=== PATIENT | female | born 1995 | race Caucasian/White ===

== ENCOUNTER 2017-01-03 13:07 | Outpatient (CLI) | payer SELFPAY ==
[~2017-01-03] VITALS: Ht 157.5 cm; Wt 78.3 kg
[~2017-01-03 13:07] MED LIST: ACET1TAB40 PO; ACET325T33 PO; CEPH500C PO; ONDA-43 PO; SENN-53 PO
[2017-01-03 13:46] VITALS: BP 114/58; RESP 16; Ht 157.5 cm; Wt 78.3 kg
--- NOTE | 2017-01-03 14:15 | RADRPT ---
PROCEDURE: Limited obstetric ultrasound CLINICAL INDICATION: Pain , labor TECHNIQUE: Multiple transverse and longitudinal grayscale images of the pelvis were obtained mcpherson sabdominally and transvaginally.. COMPARISON: same day FINDINGS: The cervix has a length of 5.4 cm. There is a trace amount of fluid within the cervix. There is a single viable intrauterine gestation. Cardiac activity is present with 137 beats per min adonis. There is a vertex presentation. The placenta is anterior. There is no evidence for an abruption or placenta previa. RPTAT: AA IMPRESSION: The cervix has a length of 5.4 cm. There is a trace amount of fluid within the cervix. .Keshav Judd MD, Date Time Electronically viewed and signed by .Keshav Judd MD, on 01/03/2017 14:15 .S/
[2017-01-03 14:23] LABS: ADD SCAN DIFF NO
[2017-01-03 14:25] LABS: BASOPHIL # 0.1 10^3/ul (0.0-0.1); BASOPHILS % 0.6 % (0.0-2.0); EOSINOPHILS # 0.1 10^3/ul (0.0-0.5); EOSINOPHILS % 1.2 % (0.0-7.0); HEMATOCRIT 28.8 % (37.0-47.0); HEMOGLOBIN 8.5 g/dl (12.0-16.0); LYMPHOCYTES # 1.9 10^3/ul (0.8-2.9); MEAN CORPUSCULAR HGB CONC 29.5 g/dl (32.0-37.0); MEAN CORPUSCULAR VOLUME 67.9 fl (72.0-104.0); MEAN PLATELET VOLUME 10.5 fl (7.4-10.4); MONOCYTE # 0.5 10^3/ul (0.3-0.9); MONOCYTES % 6.5 % (0.0-13.0); NEUTROPHIL # 5.5 10^3/ul (1.6-7.5); NEUTROPHILS % 68.2 % (30.0-74.0); PLATELET COUNT 319 10^3/UL (140-415); RED BLOOD COUNT 4.24 10^6/ul (4.20-5.40); RED CELL DISTRIBUTION WIDTH 18.7 % (11.5-14.5)
[2017-01-03 14:30] LABS: ADD UMIC YES; URINE BILIRUBIN (Dip) NEGATIVE (NEGATIVE); URINE BLOOD (Dip) NEGATIVE (NEGATIVE); URINE COLOR LT. YELLOW (YELLOW); URINE GLUCOSE (Dip) NEGATIVE (NEGATIVE); URINE KETONES (Dip) NEGATIVE (NEGATIVE); URINE LEUKOCYTE ESTERASE (Dip) 1+ (NEGATIVE); URINE NITRITE (Dip) NEGATIVE (NEGATIVE); URINE TOTAL PROTEIN (Dip) NEGATIVE (NEGATIVE); URINE UROBILINOGEN (Dip) 0.2 E.U./dL (0.1-1.0)
[2017-01-03 14:36] LABS: ALBUMIN 3.4 g/dl (3.3-4.9)
[2017-01-03 14:37] LABS: INR 0.98; POTASSIUM 3.7 mmol/L (3.5-5.1)
[2017-01-03 14:38] LABS: PARTIAL THROMBOPLASTIN TIME 27.2 Sec (25.0-35.0)
[2017-01-03 14:39] LABS: ALBUMIN/GLOBULIN RATIO 1.17; BILIRUBIN,INDIRECT 0.1 mg/dl (0-1.1); BILIRUBIN,TOTAL 0.1 mg/dl (0.2-1.3); CREATININE 0.45 mg/dl (0.44-1.00); TOTAL PROTEIN 6.3 g/dl (6.1-8.1)
[2017-01-03 14:40] LABS: CALCIUM 8.8 mg/dl (8.4-10.2); URIC ACID 3.5 mg/dl (3.1-7.9)
[2017-01-03 14:52] LABS: URINE RBCS 0-2 /HPF (0)
[2017-01-03 14:53] LABS: BACTERIA,URINE FEW
--- NOTE | 2017-01-03 15:16 | QN ---
Documentation Comment 21 y/o female at 32 weeks sent in C/O U/C claims she is diabetic and had PIH with all previous pregnancies All labs and U/S is normal baby is reactive will follow as out patient weekly THALIA PIMENTEL MD Jan 03, 2017 15:16
--- NOTE | 2017-01-03 15:34 | TRIAGE ---
OB Triage Datetime Report Generated by CPN: 01/03/2017 15:34 Datetime: 01/03/2017 15:12 Labor Evaluation Frequency: x2 Duration (sec)2399: 50-60 Pattern: Normal: <= 5 Contractions in 10 Minutes Resting Tone [place]: Relaxed Heart Rate FHR Baseline Rate: 135 Monitor Mode: External US Variability: Moderate 6-25 bpm Accelerations: 15X15 Decelerations: None Category: Category I Pain Assessment Pain Scale: 0 Pain Presence: None/Denies Pain Type: N/A Pain Goal: 3 Datetime: 01/03/2017 14:31 Time of Arrival: 01/03/2017 13:05 EGA: 32.3 Arrived By: Ambulatory Arrived From: Office Chief Complaint: pt. came to hospital from md office for r/o ptl and pih lab work, deny headache, deny vision disturbance, deny epigastric pain Movement: Present Contractions: Denies/Absent Rupture of Membranes: Denies Vaginal Bleeding: None Vaginal Discharge: Denies Recent Sexual Intercouse: Denies Abdominal Trauma: Not Applicable Patient Complaints: None Initial Plan: r/o ptl, pih labs Datetime: 01/03/2017 13:58 Monitor Mode: External Pattern: Normal: <= 5 Contractions in 10 Minutes Resting Tone [place]: Relaxed Contraction Comments: irritability Heart Rate FHR Baseline Rate: 135 Monitor Mode: External US Variability: Moderate 6-25 bpm Accelerations: 15X15 Decelerations: None Category: Category I Datetime: 01/03/2017 13:48 Assessment Type: Triage Maternal Assessment Level of Consciousness: Fully Conscious DTR's/Clonus: DTRs 2+; No Clonus Headache: Denies Blurred Vision: No Respiratory Effort: Unlabored; Regular Rhythm; Equal Expansion Breath Sounds, Left: Clear and Equal Breath Sounds, Right: Clear and Equal Nausea/Vomiting: Denies RUQ Epigastric Pain: Denies Facial Edema: None Fall Risk Assessment History of Falling: (0) No Secondary Diagnosis: (0) No Ambulatory Aid: (0) Bedrest/Nurse Assist IV Therapy: (0) No Gait: (0) Normal/Bedrest/Immobile Mental Status: (0) Oriented to Own Ability Fall Score: 0 Fall Risk Score Definition: No Risk: No action required
== END 2017-01-03 15:30 | disposition home or self-care (01) ==
LOC: OBT 13:07 → L-D 13:08 → OBT 15:30
PROVIDERS: ATTEND Obstetrics & Gynecology
DX: O62.9 Abnormality of forces of labor, unspecified (principal); O13.3 Gestational [pregnancy-induced] hypertension without significant proteinuria, third trimester; Z3A.32 32 weeks gestation of pregnancy
CPT/HCPCS: 76817; 80053; 81001; 84560; 85025; 85384; 85610; 85730; G0463; 81003

== ENCOUNTER 2017-01-18 19:55 | Inpatient (IN) | payer MEDICAID ==
[~2017-01-18] VITALS: Ht 157.5 cm; Wt 83.5 kg
[~2017-01-18 19:55] MED LIST changes: -CEPH500C PO
[2017-01-18 20:26] VITALS: Ht 157.5 cm; Wt 83.5 kg
[2017-01-18] MEDS ORDERED: CALC600T5 PO (20:26)
[2017-01-18] MEDS ORDERED: FOLI0.8C PO (20:26)
[2017-01-18] MEDS ORDERED: FERR325C PO (20:26)
[2017-01-18] MEDS ORDERED: PREN1TAB79 PO (20:26)
[2017-01-18 20:27] VITALS: BP 108/56
[2017-01-18] MEDS ORDERED: LACTATED RINGER'S 1,000 ML IV ONE (22:00)
--- NOTE | 2017-01-18 22:46 | RADRPT ---
PROCEDURE: US biophysical profile. CLINICAL INDICATION: PTL. well-being. TECHNIQUE: Multiple sonographic images of the uterus were obtained. The images were revi ewed on a PACS workstation. COMPARISON: 01/03/2017. 08/17/2016. FINDINGS: There is a single live intrauterine gestation. heart rate is 125 beats per minute. The position is cephalic. The placenta is anterior, grade II. The TAVO is 15.2 cm. Breathing Movement: 2 Gross Body Movement: 2 Tone: 2 Qualitative Amniotic Fluid Volume: 2 TOTAL: 8 IMPRESSION: 1. Single viable intrauterine gestation. 2. Biophysical profile = 05/22. 3. TAVO = 15.2 cm. RPTAT: HFN .Carolyn Mccurdy MD, MD Date Time Electronically viewed and signed by .Carolyn Mccurdy MD, MD on 01/18/2017 22:45 .N/
[2017-01-18 23:24] LABS: ADD UMIC YES; URINE BILIRUBIN (Dip) NEGATIVE (NEGATIVE); URINE BLOOD (Dip) NEGATIVE (NEGATIVE); URINE COLOR LT. YELLOW (YELLOW); URINE GLUCOSE (Dip) NEGATIVE (NEGATIVE); URINE KETONES (Dip) NEGATIVE (NEGATIVE); URINE LEUKOCYTE ESTERASE (Dip) 1+ (NEGATIVE); URINE NITRITE (Dip) NEGATIVE (NEGATIVE); URINE TOTAL PROTEIN (Dip) NEGATIVE (NEGATIVE); URINE UROBILINOGEN (Dip) 0.2 E.U./dL (0.1-1.0)
[2017-01-18 23:46] LABS: BACTERIA,URINE RARE; SQUAMOUS EPITHELIAL CELL,UR FEW; URINE RBCS 0-2 /HPF (0)
[2017-01-18] MEDS: LACTATED RINGER'S 1,000 ML IV* SCH (23:46)
--- NOTE | 2017-01-19 00:36 | PN ---
Date/Time of Note Date/Time of Note DATE: 01/19/17 TIME: 00:32 OB Subjective Subjective Subjective 21 yo P3 @ 34.3 wks w ctx prior c/d x 3 no VB, no LOF, good FM OB Objective Objective Objective 108/56, 94, 20,98.1 Abdomen- gravid, n/t SVE- l/c/p FHT- Cat I [place] ctx q 5 min HEENT: WNL Abdomen: WNL Accelerations: Accelerations Present Decelerations: No Decelerations Varibility: Moderate Contractions on Admission: 6-10 Minutes Apart Intensity: Moderate OB Assessment/Plan Other Assessment: h/o prior c/d x 3; ctx reassuring status Other plan: will IV hydrate terb x 1 reassess to see if ctx stop BEN QUINTEROS MD Jan 19, 2017 00:36
[2017-01-19] MEDS ORDERED: TERBUTALINE 1 ML ONE (00:45)
[2017-01-19] MEDS ORDERED: morphine 4 MG/ML VIAL IV ONE (00:57)
[2017-01-19] MEDS ORDERED: TERBUTALINE 1 MG/ML INJ SC ONE (01:00)
[2017-01-19] MEDS ORDERED: LACTATED RINGER'S 1,000 ML IV SCH (01:59)
[2017-01-19] MEDS ORDERED: ONDANSETRON 4 MG INJ IV PRN ×3 (02:00→18:30)
[2017-01-19] MEDS ORDERED: BUTORPHANOL 2 MG INJ IV ONE ×2 (02:00→07:00)
[2017-01-19] MEDS ORDERED: CALCIUM CARBONATE 1.25 GM TAB PO ONE (02:00)
--- NOTE | 2017-01-19 05:45 | TRIAGE ---
OB Triage Datetime Report Generated by CPN: 01/19/2017 05:45 Datetime: 01/19/2017 05:09 Vaginal Exam Dilatation (cms): 0.0 Effacement (%): 50 Station: -3 Exam By: MARCELA HO RN Datetime: 01/19/2017 04:00 Labor Evaluation Frequency: NONE SEEN Monitor Mode: External Resting Tone [place]: Relaxed Heart Rate FHR Baseline Rate: 135 Monitor Mode: External US FHR Baseline Changes: No Baseline Change Variability: Moderate 6-25 bpm Accelerations: 15X15 Decelerations: None Category: Category I Datetime: 01/19/2017 03:00 Labor Evaluation Frequency: X1 Monitor Mode: External Duration (sec)2399: 50 Quality: Mild Resting Tone [place]: Relaxed Contraction Comments: UTERINE IRRITABILITY PRESENT Heart Rate FHR Baseline Rate: 150 Monitor Mode: External US FHR Baseline Changes: No Baseline Change Variability: Moderate 6-25 bpm Accelerations: 15X15 Decelerations: None Category: Category I Datetime: 01/19/2017 02:24 Assessment Type: Admission Assessment Vaginal Bleeding: None Maternal Assessment Level of Consciousness: Fully Conscious DTR's/Clonus: DTRs 2+; No Clonus Headache: Denies Blurred Vision: No Respiratory Effort: Unlabored; Regular Rhythm; Equal Expansion Breath Sounds, Left: Clear and Equal Breath Sounds, Right: Clear and Equal Nausea/Vomiting: Present Lower Extremities Edema: None Degree: None Upper Extremities Edema: None Degree: None Facial Edema: None Fall Risk Assessment History of Falling: (25) Yes Secondary Diagnosis: (15) Yes Ambulatory Aid: (0) Bedrest/Nurse Assist IV Therapy: (20) Yes Gait: (0) Normal/Bedrest/Immobile Mental Status: (0) Oriented to Own Ability Fall Score: 60 Fall Risk Score Definition: High Risk: Please see High Risk fall prevention interventions Labor Evaluation Frequency: OCCASSIONAL Duration (sec)2399: 50 Quality: Mild Resting Tone [place]: Relaxed Heart Rate FHR Baseline Rate: 150 Variability: Moderate 6-25 bpm Accelerations: 15X15 Decelerations: None Category: Category I Pain Assessment Pain Scale: 8 Pain Presence: Intermittent Pain Type: Cramping; Contraction Pain Location: Abdomen Pain Goal: 5 Vaginal Exam Dilatation (cms): 0.0 Effacement (%): 0 Station: -3 Membrane Status: Intact Datetime: 01/19/2017 02:00 Stage of : OB Triage Labor Evaluation Frequency: Irregular Monitor Mode: External Duration (sec)2399: 40-80 Quality: Mild Pattern: Normal: <= 5 Contractions in 10 Minutes Resting Tone [place]: Relaxed Heart Rate FHR Baseline Rate: 150 Monitor Mode: External US Variability: Moderate 6-25 bpm Accelerations: 15X15 Decelerations: Variable Category: Category II Datetime: 01/19/2017 01:23 Stage of : OB Triage Datetime: 01/19/2017 01:08 Stage of : OB Triage Temperature Route: Oral Datetime: 01/19/2017 01:00 Stage of : OB Triage Labor Evaluation Frequency: Irregular Monitor Mode: External Duration (sec)2399: 40-80 Quality: Mild Pattern: Normal: <= 5 Contractions in 10 Minutes Resting Tone [place]: Relaxed Heart Rate FHR Baseline Rate: 135 Monitor Mode: External US Variability: Moderate 6-25 bpm Accelerations: 15X15 Decelerations: None Category: Category I Datetime: 01/19/2017 00:53 Stage of : OB Triage Vaginal Exam Dilatation (cms): 0.0 Exam By: Dr.Espitia Datetime: 01/19/2017 00:49 Stage of : OB Triage Pain Assessment Pain Scale: 10 Pain Presence: Intermittent Pain Type: Cramping Pain Location: Abdomen; Back Pain Relief Measures: Comfort Measures Pain Assessment Comments: Will medicate Datetime: 01/19/2017 00:00 Stage of : OB Triage Labor Evaluation Frequency: Irregular Monitor Mode: External Duration (sec)2399: 40-80 Quality: Mild Pattern: Normal: <= 5 Contractions in 10 Minutes Resting Tone [place]: Relaxed Heart Rate FHR Baseline Rate: 125 Monitor Mode: External US FHR Baseline Changes: No Baseline Change Variability: Moderate 6-25 bpm Accelerations: 15X15 Decelerations: None Category: Category I Datetime: 01/18/2017 23:00 Stage of : OB Triage Labor Evaluation Frequency: Irregular Monitor Mode: External Duration (sec)2399: 40-60 Quality: Mild Pattern: Normal: <= 5 Contractions in 10 Minutes Resting Tone [place]: Relaxed Heart Rate FHR Baseline Rate: 125 Monitor Mode: External US FHR Baseline Changes: No Baseline Change Variability: Moderate 6-25 bpm Accelerations: 15X15 Decelerations: None Category: Category I Datetime: 01/18/2017 22:37 Vaginal Exam Dilatation (cms): 0.0 Effacement (%): 0 Station: -4 Exam By: KEHINDE Leroy Membrane Status: Intact Vaginal Bleeding: None Cervix, Consistency: Firm Cervix, Position: Posterior Datetime: 01/18/2017 22:00 Stage of : OB Triage Labor Evaluation Frequency: Irregular Monitor Mode: External Duration (sec)2399: 40-60 Quality: Mild Pattern: Normal: <= 5 Contractions in 10 Minutes Resting Tone [place]: Relaxed Heart Rate FHR Baseline Rate: 125 Monitor Mode: External US Variability: Moderate 6-25 bpm Accelerations: 15X15 Decelerations: None Category: Category I Datetime: 01/18/2017 21:21 Stage of : OB Triage Datetime: 01/18/2017 21:00 Stage of : OB Triage Labor Evaluation Frequency: x1 with irritability Monitor Mode: External Duration (sec)2399: 20-80 Quality: Mild Pattern: Normal: <= 5 Contractions in 10 Minutes Resting Tone [place]: Relaxed Heart Rate FHR Baseline Rate: 130 Monitor Mode: External US Variability: Moderate 6-25 bpm Accelerations: 15X15 Decelerations: Variable Category: Category II Datetime: 01/18/2017 20:40 Monitor Mode: External Contraction Comments: Gonzalez changed Datetime: 01/18/2017 20:38 Bedside Blood Glucose: 89 Datetime: 01/18/2017 20:21 Stage of : OB Triage Datetime: 01/18/2017 20:16 Stage of : OB Triage Assessment Type: Triage Maternal Assessment Level of Consciousness: Fully Conscious DTR's/Clonus: DTRs 2+; No Clonus Headache: Temporal; Bilateral; Frontal Blurred Vision: No Respiratory Effort: Unlabored; Regular Rhythm; Equal Expansion Breath Sounds, Left: Clear and Equal Breath Sounds, Right: Clear and Equal Nausea/Vomiting: Present (Annotations: Nausea only) RUQ Epigastric Pain: Denies Lower Extremities Edema: None Degree: None Upper Extremities Edema: None Degree: None Facial Edema: None Temperature Route: Oral Fall Risk Assessment History of Falling: (0) No Secondary Diagnosis: (0) No Ambulatory Aid: (0) Bedrest/Nurse Assist IV Therapy: (0) No Gait: (0) Normal/Bedrest/Immobile Mental Status: (0) Oriented to Own Ability Fall Score: 0 Fall Risk Score Definition: No Risk: No action required Pain Assessment Pain Scale: 6 Pain Presence: Intermittent Pain Type: Cramping Pain Location: Abdomen; Back Pain Relief Measures: Comfort Measures Datetime: 01/18/2017 20:14 Stage of : OB Triage Monitor Mode: External Contraction Comments: Gonzalez applied Heart Rate FHR Baseline Rate: 130 Monitor Mode: External US Comments: EFM applied Datetime: 01/18/2017 20:12 Time of Arrival: 01/18/2017 19:51 EGA: 34.3 Arrived By: Wheelchair Arrived From: Dr. Office Chief Complaint: Abd pain x 4days Movement: Present Contractions: Regular Contractions: q5mins Rupture of Membranes: Denies Vaginal Bleeding: None Vaginal Discharge: Denies Recent Sexual Intercouse: Denies Abdominal Trauma: Not Applicable Patient Complaints: Contractions; Cramping; Back Pain Time Provider Notified: 01/18/2017 21:21 Provider Notified: Initial Plan: EFM x2 Datetime: 01/03/2017 14:31 EGA: 32.2 Datetime: 01/03/2017 13:48 Fall Score: 0 Fall Risk Score Definition: No Risk: No action required
[2017-01-19] MEDS: LACTATED RINGER'S 1,000 ML IV* SCH (06:14)
[2017-01-19] MEDS ORDERED: MAGNESIUM SULFATE 4 GM/100 ML 100 ML ONE (07:24)
[2017-01-19] MEDS ORDERED: MAGNESIUM SULFATE 4 GM/100 ML 100 ML IV SCH (07:30)
[2017-01-19] MEDS ORDERED: MAGNESIUM SULFATE 20 GM/500 ML 500 ML IV SCH (08:00)
[2017-01-19 08:14] LABS: BENZODIAZEPINES Negative (NEGATIVE)
[2017-01-19 08:16] LABS: BARBITURATES Negative (NEGATIVE); CANNABINOIDS Negative (NEGATIVE); COCAINE Negative (NEGATIVE)
[2017-01-19 08:17] LABS: OPIATES Negative (NEGATIVE)
[2017-01-19] MEDS ORDERED: BETAMET NA PHOS/AC(6 MG/ML) 5ML INJ IM SCH ×2 (08:30→20:12)
[2017-01-19] MEDS ORDERED: FERROUS SULFATE (EC) 325 MG TAB PO SCH (09:00)
[2017-01-19] MEDS ORDERED: FOLIC ACID 0.4 MG TAB PO SCH (09:00)
[2017-01-19] MEDS ORDERED: MULTIVIT/MIN/FOLATE/IRON/PREN TAB PO SCH (09:00)
[2017-01-19 09:02] LABS: ADD SCAN DIFF NO
[2017-01-19 09:07] LABS: ABNORMAL IP MESSAGE 1; BASOPHILS % 0.2 % (0.0-2.0); EOSINOPHILS # 0.1 10^3/ul (0.0-0.5); EOSINOPHILS % 1.2 % (0.0-7.0); HEMATOCRIT 26.1 % (37.0-47.0); HEMOGLOBIN 7.4 g/dl (12.0-16.0); LYMPHOCYTES # 1.7 10^3/ul (0.8-2.9); LYMPHOCYTES % 16.4 % (18.0-55.0); MEAN CORPUSCULAR HEMOGLOBIN 19.2 pg (29.0-33.0); MEAN CORPUSCULAR HGB CONC 28.4 g/dl (32.0-37.0); MEAN CORPUSCULAR VOLUME 67.8 fl (72.0-104.0); MEAN PLATELET VOLUME 10.4 fl (7.4-10.4); MONOCYTE # 0.7 10^3/ul (0.3-0.9); MONOCYTES % 6.3 % (0.0-13.0); NEUTROPHIL # 7.7 10^3/ul (1.6-7.5); NEUTROPHILS % 75.1 % (30.0-74.0); PLATELET COUNT 278 10^3/UL (140-415); RED BLOOD COUNT 3.85 10^6/ul (4.20-5.40); WHITE BLOOD COUNT 10.3 10^3/ul (4.8-10.8)
[2017-01-19 09:20] LABS: INR 1.03; PROTIME 13.5 Sec (12.2-14.2); PT RATIO 1.1
[2017-01-19 09:21] LABS: PARTIAL THROMBOPLASTIN TIME 25.9 Sec (25.0-35.0)
--- NOTE | 2017-01-19 09:53 | RADRPT ---
PROCEDURE: Limited OB ultrasound CLINICAL INDICATION: Pelvic pain TECHNIQUE: Sonographic evaluation to assess the placenta was performed. Transabdominal imaging of the gravid uterus was performed. COMPARISON: No prior exam is available for comparison. FINDINGS: There is a single live intrauterine with cardiac activity, with a heart rate o f 148 bpm. position is cephalic. The placenta is anterior. There is no evidence of placenta l abruption or previa. IMPRESSION: Anterior placenta without evidence of placental abruption or previa. RPTAT: HH .Cha Garcia MD, MD Date Time Electronically viewed and signed by .Cha Garcia MD, MD on 01/19/2017 09:53 .G/
[2017-01-19] MEDS ORDERED: CEFAZOLIN 2 GM/50 ML (PMX) 50 ML IVPB ONE (11:30)
[2017-01-19] MEDS: MEPERIDINE 50 MG INJ IV PRN ×2 (12:12→16:15)
--- NOTE | 2017-01-19 13:31 | QN ---
Documentation Comment Neonatology consult Asked to see this by Dr. Craven This mother is a 21-year-old 4 para 2 who presented at 34 and 3/ sevenths weeks gestation [facility] with labor, gestational diabetes with poor control and a history of a previous . Mother is presently on magnesium sulfate tocolysis and is started a course of steroids. She is intact and no history of fevers I spoke to the parents in [place] regarding the risks associated with delivery including but not limited to the following 1. Respiratory distress syndrome apnea prematurity use of oxygen and ventilatory support 2. Patent ductus arteriosus and hypertension in their clinical management and NICU 3. Possibility of infection including the use of antibiotics and workup. Also stressed early rupture membranes could cause increased risk for infection 4. Internal gestational diabetes: We will be following blood sugars on the baby and may require IV glucose supplementation 5. Nutrition difficulties including poor on nutritive effort possibility of intervention with occupational physical therapy and IV nutrition to the penis. 6. There is a very minimal risk of intraventricular hemorrhage in this age group with severe grade 3 grade 4 risk being probably less than 1 to 4%. I answered the parent's questions and will be available to attend the delivery as necessary. If you have any further questions please do not hesitate to contact us PILI BEAVERS MD Jan 19, 2017 13:31
--- NOTE | 2017-01-19 13:59 | PDOCDIS ---
NICU Discharge Instructions Project Account Manager Information Follow-up with Physician: 3 Day/Days Diet NICU Formula: Other Comment gentle ease formula at 20 iva/oz Additional Instructions Additional Information May discharge if hospital hold lifted Discharge to care of maternal grandmother as arranged by [facility] Discharge medication 0.66mg po every 12 hours for 1 week then 0.54mg po q 12 hours feedings eveery 2-4 hours with gentle ease formula or breast milk ad peyman volume Followup with tax clerk in 3 days 01/22/17 Followup [facility] clinic in 8 months PILI BEAVERS MD Jan 19, 2017 13:59
[2017-01-19] MEDS ORDERED: DEXTROSE 50% 50 ML SYRINGE IV PRN ×2 (14:00)
[2017-01-19] MEDS ORDERED: GLUCAGON 1 MG INJ IM PRN (14:00)
[2017-01-19] MEDS ORDERED: GLUCOSE GEL 15 GRAM TUBE BUCCAL PRN (14:00)
[2017-01-19] MEDS ORDERED: GLUCOSE GEL 15 GRAM TUBE PO PRN ×2 (14:00)
[2017-01-19] MEDS ORDERED: CITRIC ACID/NA CITRATE 30 ML CUP ONE (16:49)
[2017-01-19] MEDS ORDERED: OXYTOCIN 30 UNITS/LR 500 ML IV ONE ×2 (16:57→18:11)
[2017-01-19] MEDS ORDERED: morphine SULFATE/PF (10 MG/10 ML) INJ ONE (16:58)
[2017-01-19] MEDS ORDERED: METOCLOPRAMIDE 10 MG INJ ONE (16:58)
[2017-01-19] MEDS ORDERED: KETOROLAC 30 MG INJ ONE (16:58)
[2017-01-19] MEDS ORDERED: ACCU-CHEK XX SCH ×2 (17:05→19:35)
[2017-01-19] MEDS ORDERED: PHENYLephrine (100 MCG/ML) 5ML SYG ONE (17:11)
[2017-01-19] MEDS ORDERED: CARBOPROST 250 MCG INJ ONE (17:34)
[2017-01-19] MEDS ORDERED: NALOXONE (0.4 MG/ML) INJ IV PRN (18:30)
[2017-01-19] MEDS ORDERED: METOCLOPRAMIDE 10 MG INJ IV PRN (18:30)
[2017-01-19] MEDS ORDERED: OXYTOCIN 30 UNITS/LR 500 ML IV SCH (18:30)
[2017-01-19] MEDS ORDERED: HYDROmorphONE 1 MG/ML SYG IV PRN ×2 (18:30)
[2017-01-19] MEDS ORDERED: DIPHENHYDRAMINE 50 MG INJ IV PRN (18:30)
[2017-01-19] MEDS ORDERED: HYDROmorphONE (0.2 MG/ML) 10ML SYG IV PRN ×3 (18:30)
--- NOTE | 2017-01-19 18:37 | HP ---
Date/Time of Note Date/Time of Note DATE: 01/19/17 TIME: 18:10 OB - History Hx of Present Free Text/Dictation 21 y/o female at 34.4 weeks C/O onset of labor pains started at 0200 AM 2016. Patient had history of previous C/S X 3 Patient was seen on 01/18/2017 in clinic was directed to refer to hospital however she did not do so. According to patient upon arrival had minimal contraction pains. However the pain became more and more intense until she was started on magnesium sulfate. Regardless she continued to C/O pain and incisional pain which could not be relieved. After discussion of situation with patient agreed to continue to be observed until the second dose of steroids in AM. As mentioned before pain became more and more intense to point of patient crying of pain regardless of the fact that electronic monitor was not showing persistent contractions. Finally after consulting perinatologist Dr. Lindsey decision was made to repeat C/S with the fact that she received on dose of steroid understanding the fact that persistent C/O incisional pain by patient could be dangerous to herself and unborn child. Patient was reconsulted and agreed to have repeat C/S Estimated Due Date: February 26, 2017 : 4 Para: 3 Care: Limited Care Ultrasounds: Other (late trimester U/S ) Obstetrical Complications: Gestational Diabetes (Questionable class A DM ) Medical Complications: Other (previous appendectomy? ) Past Family/Social History * Past Medical, Surgical, Family and Obstetric Histories reviewed from chart. Blood Type: O+ Rubella: unknown RPR/VDRL: Negative GBS Status: Unknown HBsAG: Negative OB Admission Exam Vital Signs Vital Signs Vital Signs Date Time Temp Pulse Resp B/P Pulse Ox O2 Delivery O2 Flow Rate FiO2 01/18/17 20:27 98.1 94 20 108/56 Room Air Physical Exam HEENT: WNL Heart: Rhythm Normal Lungs: Clear, Equal Abdomen: WNL Extremities: Normal Reflexes: Normal Cervical Dilatation: Fingertip Effacement: 0% Station: -3 Membranes: Intact (patient had claim that she had SROM : ROM plus stayed negative X 2 ) Heart Rate: 120's Accelerations: Accelerations Present Decelerations: No Decelerations Varibility: Moderate Contractions on Admission: < 5 Minutes Apart Date/Time Contractions Began: 01/19/2017 0400 AM Frequency of Contractions: q3 Duration: >45 seconds Intensity: Firm Last 72 hourBlood Glucose Bedside Glucose - 72 Hours Test 01/18/17 20:38 01/19/17 13:27 Bedside Glucose 89mg/dL (70-220) 101mg/dL (70-220) Last 72 hours Lab Results CBC & BMP 01/19/17 08:25 OB Assessment/Plan Reason for admission: labor Other Assessment: 34+ weeks gestation previous C/S X 3 persistent nonresolving uterine contractions possible early ruptured uterus Other plan: repeat C/S per perinatologist THALIA PIMENTEL MD Jan 19, 2017 18:27
--- NOTE | 2017-01-19 18:39 | OPR ---
Operative Report Planned Procedure Procedure date Jan 19, 2017 Procedure(s) repeat C/S Performed by: THALIA PIMENTEL MD Assisting provider: BRIDGET LI MD Anesthesiologist: HARI MARQUEZ MD Pre-procedure diagnosis persistent nonresolving premature uterine contractions at 34 + weeks previous C/S X 3 Anesthesia Type: spinal Procedure Description Under satisfactory anaesthesia a Pfannenstiel incision was made two fingerbreadth above and parallel to the symphysis of pubis around the previous scar and previous scar was removed Incision was extended laterally to the border of the Recti muscles on either sides. Incision was carried down with sharp and blunt dissection until fascia was reached. Anterior Recti muscle fascia was incised in mid portion and incision extended laterally to the border of skin incision. Fascia was mobilized from muscle superiorly and Recti muscles were from midline using sharp and blunt dissection. Peritoneum was visualized; Avoiding bowel and bladder it was incised . Incision was extended superiorly and inferiorly. Bladder blade was placed. Posterior peritoneum covering the lower segment of the uterus and lower segment of the uterus were incised.Low transverse uterine incision was made on lower segment of the uterus. Incision extended laterally to the border of Round Lig. on either sides and baby was delivered from OT. position . Amniotic fluid appeared clear. Cord blood was obtained and cord had 3 vessels . Placenta was delivered spontaneously and appeared intact and complete. Intrauterine cavity was rubbed with a laparotomy sponge. Uterine incision was closed in 2 layers using running stitches of No1 Monocryl. Hemostasis appeared secure. Ovaries and Fallopian tubes were within normal limits. Announcing needle, lap sponge and instrument count to be correct abdomen was closed in layers as follows: Peritoneum and Recti muscles with running stitches of 20 Vicryl. Fascia with running stitch of No 1 PDS. Subcutaneous tissue with running stitches of 20 Chromic and skin was closed using jeri. Patient tolerated the procedure well and was transferred to [facility] in good condition. Post-Procedure Post-procedure diagnosis S/P C/S Findings: Live Baby [ Specimen removed: No Complications: None Pt Condition post procedure: stable Disposition: PACU Physician Certification I, the undersigned physician, hereby certify that I have discussed the procedure described in this consent form with this patient (or the patient's legal sales representative wire rope), including: * The risk and benefits of the procedure; * Any adverse reactions that may reasonably be expected to occur; * Any alternative efficacious methods of treatment which may be medically viable ; * The potential problems that may occur during recuperation; * Potential for blood transfusion and associated risks/benefits; and * Any research or economic interest I may have regarding this treatment. I further certify that the patient/legally responsible person was encouraged to ask question and that all questions were answered. THALIA PIMENTEL MD Jan 19, 2017 18:39
[2017-01-19] MEDS ORDERED: CARBOPROST 250 MCG INJ IM PRN ×2 (19:00→21:00)
[2017-01-19] MEDS ORDERED: CITRIC ACID/NA CITRATE 30 ML CUP PO ONE (19:00)
[2017-01-19] MEDS ORDERED: MISOPROSTOL 200 MCG TAB PR PRN ×2 (19:00→21:00)
[2017-01-19] MEDS ORDERED: METHYLERGONOVINE 0.2 MG INJ IM PRN ×2 (19:00→21:00)
[2017-01-19] MEDS ORDERED: OXYTOCIN 30 UNITS/LR 500 ML IV PRN ×2 (19:00→21:00)
[2017-01-19] MEDS ORDERED: INSULIN ASPART [NOVOLOG] 3 ML PEN SC SCH (19:35)
[2017-01-19] MEDS: HYDROmorphONE 1 MG/ML SYG IV PRN (19:44)
[2017-01-19] MEDS: KETOROLAC 30 MG INJ IV PRN (19:44)
[2017-01-19] MEDS ORDERED: CEFAZOLIN 2 GM/50 ML (PMX) 50 ML IV SCH (21:00)
[2017-01-19] MEDS ORDERED: LANOLIN 7 GM TUBE TOP PRN (21:00)
[2017-01-19] MEDS: SENNA/DOCUSATE NA (8.6MG/50MG) TAB PO SCH (21:00)
[2017-01-19] MEDS ORDERED: NA PHOSPHATE/BIPHOS 133 ML ENEMA PR PRN (21:00)
[2017-01-19] MEDS ORDERED: ACETAMINOPHEN/CODEINE #3 TAB PO PRN (21:00)
[2017-01-19 21:20] VITALS: BP 108/59; PULSE 82; RESP 19
[2017-01-19] MEDS: LACTATED RINGER'S 1,000 ML IV SCH (21:46)
[2017-01-19 22:10] VITALS: BP 101/54; PULSE 78; RESP 19
[2017-01-20 01:00] VITALS: BP 94/49; PULSE 78; RESP 20
[2017-01-20] MEDS: CEFAZOLIN 2 GM/50 ML (PMX) 50 ML IVPB SCH ×3 (01:16→16:29)
[2017-01-20] MEDS: KETOROLAC 30 MG INJ IV PRN ×2 (01:16→10:21)
[2017-01-20] MEDS: LACTATED RINGER'S 1,000 ML IV SCH ×4 (05:22→23:41)
[2017-01-20] MEDS: HYDROmorphONE 1 MG/ML SYG IV PRN ×3 (05:26→15:16)
[2017-01-20] MEDS: CLINDAMYCIN 300 MG CAP PO SCH ×4 (05:26→23:40)
[2017-01-20 05:41] VITALS: BP 90/45; PULSE 91; RESP 19
--- NOTE | 2017-01-20 07:12 | PN ---
Date/Time of Note Date/Time of Note DATE: 01/20/17 TIME: 07:10 Assessment/Plan VTE Prophylaxis VTE Prophylaxis Intervention: ambulation Lines/Catheters IV Catheter Type (from Nrsg): Saline Lock Subjective 24 Hr Interval Summary Free Text/Dictation Anesthesia Note: A 21 y female s/p C-S with duramorph for post op pain, POD #1 is doinf fine. pain is controlled, no itching, headache, n/v. back is clean. care per surgery team Exam/Review of Systems Vital Signs Vitals Vital Signs Date Time Temp Pulse Resp B/P Pulse Ox O2 Delivery O2 Flow Rate FiO2 01/20/17 05:41 98.7 91 19 90/45 Room Air Intake and Output 01/19/17 01/19/17 01/20/17 15:00 23:00 07:00 Intake Total 200 ml 2500 ml 1050 ml Output Total 1400 ml 2900 ml 600 ml Balance -1200 ml -400 ml 450 ml Results Result Diagram: 01/19/17 0825 Results 24 hrs Laboratory Tests Test 01/19/17 08:25 01/19/17 13:27 01/19/17 15:15 White Blood Count 10.3 # Red Blood Count 3.85 L Hemoglobin 7.4 L Hematocrit 26.1 L Mean Corpuscular Volume 67.8 L Mean Corpuscular Hemoglobin 19.2 L Mean Corpuscular Hemoglobin Concent 28.4 L Red Cell Distribution Width 19.0 H Platelet Count 278 Mean Platelet Volume 10.4 Neutrophils % 75.1 H Lymphocytes % 16.4 L Monocytes % 6.3 Eosinophils % 1.2 Basophils % 0.2 Nucleated Red Blood Cells % 0.0 Neutrophils # 7.7 H Lymphocytes # 1.7 Monocytes # 0.7 Eosinophils # 0.1 Basophils # 0.0 Nucleated Red Blood Cells # 0.0 Prothrombin Time 13.5 Prothrombin Time Ratio 1.1 INR International Normalized Ratio 1.03 Activated Partial Thromboplast Time 25.9 Rapid Plasma Reagin NONREACTIVE Hepatitis B Surface Antigen NEGATIVE Bedside Glucose 101 Membranes Rupture NEGATIVE Medications Medications Current Medications Naloxone HCl (Narcan) 0.1 mg Q2M PRN IV FOR RESP RATE 8 OR LESS; Start 01/19/17 at 18:30; Stop 01/20/17 at 18:29 Ketorolac Tromethamine (Toradol) 30 mg Q6H PRN IV PAIN Last administered on 01/20 01:16; Admin Dose 30 MG; Start 01/19/17 at 18:30; Stop 01/20/17 at 18:29 Hydromorphone HCl (Dilaudid) 1 mg Q3H PRN IV BREAKTHROUGH PAIN Last administered on 01/20/17 05:26; Admin Dose 1 MG; Start 01/19/17 at 18:30; Stop at 18:29 Hydromorphone HCl (Dilaudid) 0.2 mg Q3H PRN IV PAIN LEVEL 1-5; Start 01/19/17 at 18:30; Stop 01/20/17 at 18:29 Hydromorphone HCl (Dilaudid) 0.4 mg Q3H PRN IV PAIN LEVEL 6-10 Last administered on 01/19/17 21:40; Admin Dose 0.4 MG; Start 01/19/17 at 18:30; Stop 01/20/17 at 18:29 Diphenhydramine HCl (Benadryl) 25 mg Q6H PRN IV ITCHING Last administered on 21:46; Admin Dose 25 MG; Start 01/19/17 at 18:30; Stop 01/20/17 at 18:29 Ondansetron HCl 4 mg 4 mg Q6H PRN IV NAUSEA AND/OR VOMITING; Start 01/19/17 at 18:30; Stop 01/20/17 at 18:29 Oxytocin/Lactated Ringer's 500 ml @ 0 mls/hr ONCE PRN IV For Hemorrhage Management; Start 01/19/17 at 19:00 Carboprost Tromethamine 250 mcg 250 mcg ONCE PRN IM VAGINAL BLEEDING; Start 01/19 at 19:00 Lactated Ringer's (Lr) 1,000 ml @ 125 mls/hr Q8H IV Last administered on 05:22; Admin Dose 125 MLS/HR; Start 01/19/17 at 20:43 Ibuprofen (Motrin) 800 mg Q8 PO ; Start 01/19/17 at 22:00; Status Future hold Simethicone (Mylicon) 160 mg Q8H PRN PO DISTENSION/GAS/BLOATING; Start 01/19/17 at 21:00 Senna/Docusate Sodium (Senokot-S) 1 tab BID PO ; Start 01/19/17 at 21:00 Sodium Biphosphate/ Sodium Phosphate (Fleet Enema) 133 ml DAILY PRN DE CONSTIPATION; Start 01/19/17 at 21:00 Diphtheria/ Tetanus/Acell Pertussis (Adacel) 0.5 ml ONCE ONCE IM* ; Start at 09:00; Stop 01/22/17 at 09:01 Measles/Mumps/ Rubella Vaccine Live 0.5 ml 0.5 ml ONCE ONCE SC* ; Start at 09:00; Stop 01/22/17 at 09:01 Oxytocin/Lactated Ringer's 500 ml @ 0 mls/hr ONCE PRN IV For Hemorrhage Management; Start 01/19/17 at 21:00 Methylergonovine Maleate (Methergine) 0.2 mg ONCE PRN IM VAGINAL BLEEDING; Start 01/19/17 at 21:00 Carboprost Tromethamine (Hemabate) 250 mcg ONCE PRN IM VAGINAL BLEEDING; Start 01/19/17 at 21:00 Misoprostol (Cytotec) 1,000 mcg ONCE PRN DE VAGINAL BLEEDING; Start 01/19/17 at 21:00 Acetaminophen/ Codeine Phosphate (Tylenol No.3) 2 tab Q4H PRN PO PAIN LEVEL 1-5 ; Start 01/19/17 at 21:00 Oxycodone/ Acetaminophen (Percocet (5/ 325)) 2 tab Q4H PRN PO PAIN LEVEL 6-10; Start 01/19/17 at 21:00 Clindamycin HCl (Cleocin) 300 mg Q6 PO Last administered on 01/20/17 05:26; Admin Dose 300 MG; Start 01/20/17 at 06:00 Bisacodyl (Dulcolax Supp) 10 mg ONCE ONCE DE ; Start 01/20/17 at 09:00; Stop 01/20/17 at 09:01 Diagnostic Test (Pha) 1 ea 1 ea FBSPP XX ; Start 01/20/17 at 06:00 Cefazolin Sodium/ Dextrose (Ancef 2 Gm/50 ml (Pmx)) 50 ml @ 100 mls/hr Q8H IVPB Last administered on 01/20/17 01:16; Admin Dose 100 MLS/HR; Start 01/20/17 at 01:00; Stop 01/20/17 at 17:29 HARI MARQUEZ MD Jan 20, 2017 07:11
[2017-01-20] MEDS: ACCU-CHEK XX SCH ×4 (07:30→20:05)
[2017-01-20 07:36] LABS: ADD SCAN DIFF NO
[2017-01-20 07:38] LABS: ABNORMAL IP MESSAGE 1; BASOPHILS % 0.2 % (0.0-2.0); EOSINOPHILS % 0.1 % (0.0-7.0); HEMATOCRIT 24.6 % (37.0-47.0); HEMOGLOBIN 7.1 g/dl (12.0-16.0); LYMPHOCYTES # 1.7 10^3/ul (0.8-2.9); LYMPHOCYTES % 14.1 % (18.0-55.0); MEAN CORPUSCULAR HEMOGLOBIN 19.7 pg (29.0-33.0); MEAN CORPUSCULAR HGB CONC 28.9 g/dl (32.0-37.0); MEAN CORPUSCULAR VOLUME 68.1 fl (72.0-104.0); MEAN PLATELET VOLUME 10.4 fl (7.4-10.4); MONOCYTE # 0.7 10^3/ul (0.3-0.9); MONOCYTES % 5.6 % (0.0-13.0); NEUTROPHIL # 9.6 10^3/ul (1.6-7.5); NEUTROPHILS % 79.5 % (30.0-74.0); PLATELET COUNT 287 10^3/UL (140-415); RED BLOOD COUNT 3.61 10^6/ul (4.20-5.40); RED CELL DISTRIBUTION WIDTH 18.6 % (11.5-14.5); WHITE BLOOD COUNT 12.1 10^3/ul (4.8-10.8)
[2017-01-20 08:30] VITALS: BP 94/50; PULSE 86; RESP 18
[2017-01-20] MEDS: SENNA/DOCUSATE NA (8.6MG/50MG) TAB PO SCH ×2 (08:34→22:16)
[2017-01-20] MEDS ORDERED: BISACODYL 10 MG SUPP PR ONE (09:00)
[2017-01-20 12:52] VITALS: BP 98/53; PULSE 71; RESP 18
--- NOTE | 2017-01-20 16:21 | PN ---
Date/Time of Note Date/Time of Note DATE: 01/20/17 TIME: 16:19 Assessment/Plan VTE Prophylaxis VTE Prophylaxis Intervention: ambulation Lines/Catheters IV Catheter Type (from Nrs): Saline Lock Assessment/Plan Assessment/Plan POD # 1 S/P C/S will advance diet ambulate Subjective 24 Hr Interval Summary No BM passing flatus Constitutional: BM, ambulates, flatus, improved, no complaints, urine output Pain Control: well controlled Exam/Review of Systems Vital Signs Vitals Vital Signs Date Time Temp Pulse Resp B/P Pulse Ox O2 Delivery O2 Flow Rate FiO2 01/20/17 12:52 98.0 71 18 98/53 Room Air Intake and Output 01/19/17 01/19/17 01/20/17 15:00 23:00 07:00 Intake Total 200 ml 2500 ml 1050 ml Output Total 1400 ml 2900 ml 600 ml Balance -1200 ml -400 ml 450 ml Exam Free Text/Dictation abdomen: soft BS + Incision covered Constitutional: alert, oriented, well developed Psych: nl mood/affect, no complaints Head: atraumatic, normocephalic Eyes: EOMI, nl conjunctiva, nl lids, nl sclera ENMT: mucosa pink and moist, nl external ears & nose, nl lips & teeth, nl nasal mucosa & septum Neck: non-tender, supple Respiratory: clear to auscultation, normal air movement Cardiovascular: nl pulses, regular rate and rhythm Gastrointestinal: nl liver, spleen, non-tender, soft Musculoskeletal: nl extremities to inspection, nl gait and stance Extremities: normal pulses Neurological: ROADABILITY MACHINE OPERATOR II-XII intact, nl mental status, nl speech, nl strength Skin: nl turgor, rash or lesions Lymph: nl lymph nodes Results Result Diagram: 01/20/17 0651 THALIA PIMENTEL MD Jan 20, 2017 16:21
[2017-01-20 16:22] VITALS: BP 99/53; PULSE 72; RESP 18
[2017-01-20] MEDS: OXYCODONE/ACETAMINOPHEN (5/325) TAB PO PRN (18:58)
[2017-01-20 19:35] VITALS: BP 110/58; PULSE 83; RESP 19
[2017-01-20] MEDS: IBUPROFEN 800 MG TAB PO SCH (22:16)
[2017-01-21] MEDS: OXYCODONE/ACETAMINOPHEN (5/325) TAB PO PRN ×3 (02:08→17:17)
[2017-01-21 03:50] VITALS: BP 106/53; PULSE 83; RESP 18
[2017-01-21] MEDS: CLINDAMYCIN 300 MG CAP PO SCH ×3 (05:33→17:17)
[2017-01-21] MEDS: IBUPROFEN 800 MG TAB PO SCH ×3 (05:33→22:03)
[2017-01-21 07:30] VITALS: BP 101/53; PULSE 76; RESP 19
[2017-01-21] MEDS: ACCU-CHEK XX SCH ×4 (07:30→20:05)
[2017-01-21] MEDS: SENNA/DOCUSATE NA (8.6MG/50MG) TAB PO SCH ×2 (08:23→22:03)
[2017-01-21] MEDS: LACTATED RINGER'S 1,000 ML IV SCH ×2 (11:23→20:43)
[2017-01-21 16:00] VITALS: BP 103/56; PULSE 72; RESP 19
--- NOTE | 2017-01-21 16:39 | DS ---
Date/Time of Note Date/Time of Note home next day DATE: 01/21/17 TIME: 16:37 Obstetrical Discharge Record Final Diagnosis Final Diagnosis: delivered Other Final Diagnosis persistent nonresolving contractions Section Section: Repeat Complications Gestational Diabetes (questionable ) Tocolytics: Magnesium Sulfate Condition on Discharge Physical Assessment Last Vitals: see nurses notes Voiding: Yes Bowel Movement: Yes Breast: Soft, non-tender, Filling Fundus: Firm Abdomen and Incision: abdomen: soft BS + Incision: healing well Episiotomy: NA Calf Tenderness: No Patient Condition: Good THALIA PIMENTEL MD Jan 21, 2017 16:39
--- NOTE | 2017-01-21 16:43 | DS ---
Date/Time of Note Date/Time of Note home next day DATE: 01/21/17 TIME: 16:40 Discharge Summary Admission/Discharge Info Admit Date/Time Jan 19, 2017 at 02:20 Discharge Date/Time 01/22/2017 Final Diagnosis S/P repeat C/S Patient Condition: Good Consults perinatology Procedures repeat C/S Hx of Present Illness 21 y/o female underwent 4th C/S with nonresolving uterine contractions Hospital Course uncomplicated Home Meds Active Scripts Acetaminophen* (Tylenol*) 325 Mg Tablet, 1 TAB PO Q6 Y for PAIN AND OR ELEVATED TEMP, #20 TAB Prov:Karla Nguyen PA-C 08/18/16 Ondansetron Hcl* (Zofran*) 4 Mg Tab, 4 MG PO Q4H Y for NAUSEA AND OR VOMITING, # 30 TAB Prov:JOSE LOPEZ 12/28/15 Sennosides* (Senna Lax*) 8.6 Mg Tablet, 1 TAB PO Q12H Y for CONSTIPATION, #30 TAB Prov:JOSE LOPEZ 12/28/15 Acetaminophen-Codeine* (Acetaminophen-Cod #3*) 300-30 Mg Tab, 1 TAB PO Q4H Y for PAIN, #30 TAB Prov:JOSE LOPEZ 12/28/15 Reported Medications Folic Acid (Folic Acid) 0.8 Mg Capsule, 0.8 MG PO DAILY, CAP 01/18/17 Calcium Carbonate (CALCIUM) 600 Mg Tablet, 600 MG PO DAILY, TAB 01/18/17 Ferrous Sulfate (Iron) 325 Mg Capsule.er, 325 MG PO DAILY, CAP 01/18/17 Vit W-Ca,Fe,FA(<1 mg) ( Vitamins) 1 Each Tablet, 1 EACH PO DAILY, TAB 01/18/17 Follow-up Plan 2 days in clinic for staple removal Pending Labs Laboratory Tests Test 01/20/17 23:02 01/21/17 07:57 01/21/17 11:11 01/21/17 15:08 Bedside Glucose 136mg/dL (70-220) 84mg/dL (70-220) 86mg/dL (70-220) 121mg/dL (70-220) THALIA PIMENTEL MD Jan 21, 2017 16:43
--- NOTE | 2017-01-21 16:45 | PD.PPDC ---
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
[2017-01-21] MEDS ORDERED: Oxycodone/Acetamin (5/325) PO (16:47)
[2017-01-21] MEDS ORDERED: IBUP800T25 PO (16:47)
[2017-01-21 19:40] VITALS: BP 105/54; PULSE 87; RESP 19
[2017-01-22] MEDS: CLINDAMYCIN 300 MG CAP PO SCH ×3 (00:23→12:31)
[2017-01-22] MEDS: LACTATED RINGER'S 1,000 ML IV SCH ×2 (02:07→12:43)
[2017-01-22 03:30] VITALS: BP 106/50; PULSE 77; RESP 18
[2017-01-22] MEDS: IBUPROFEN 800 MG TAB PO SCH ×2 (05:51→14:18)
[2017-01-22] MEDS: ACCU-CHEK XX SCH ×3 (07:45→13:50)
[2017-01-22 08:06] LABS: ADD SCAN DIFF NO
[2017-01-22 08:15] VITALS: BP 95/50; PULSE 89; RESP 18
[2017-01-22 08:20] LABS: ABNORMAL IP MESSAGE 1; BASOPHILS % 0.4 % (0.0-2.0); EOSINOPHILS # 0.3 10^3/ul (0.0-0.5); EOSINOPHILS % 2.5 % (0.0-7.0); HEMOGLOBIN 8.3 g/dl (12.0-16.0); LYMPHOCYTES # 2.3 10^3/ul (0.8-2.9); LYMPHOCYTES % 21.5 % (18.0-55.0); MEAN CORPUSCULAR HEMOGLOBIN 19.5 pg (29.0-33.0); MEAN CORPUSCULAR HGB CONC 28.6 g/dl (32.0-37.0); MEAN CORPUSCULAR VOLUME 68.1 fl (72.0-104.0); MEAN PLATELET VOLUME 9.9 fl (7.4-10.4); MONOCYTE # 0.6 10^3/ul (0.3-0.9); MONOCYTES % 5.8 % (0.0-13.0); NEUTROPHIL # 7.3 10^3/ul (1.6-7.5); PLATELET COUNT 344 10^3/UL (140-415); RED BLOOD COUNT 4.26 10^6/ul (4.20-5.40); RED CELL DISTRIBUTION WIDTH 18.8 % (11.5-14.5); WHITE BLOOD COUNT 10.6 10^3/ul (4.8-10.8)
[2017-01-22] MEDS ORDERED: DIPHTH/TET/ACEL PERTUSS (ADULT) 0.5 ML VIAL IM* ONE (09:00)
[2017-01-22] MEDS ORDERED: MEASLES,MUMPS,RUBELLA VACCINE INJ SC* ONE (09:00)
[2017-01-22] MEDS: SENNA/DOCUSATE NA (8.6MG/50MG) TAB PO SCH (09:00)
[2017-01-22 16:00] VITALS: BP 103/61; PULSE 88; RESP 18
== END 2017-01-22 17:30 | disposition home or self-care (01) | DRG 765 ==
LOC: OBT 19:55 → L-D 19:56 → OBT 01-19 02:20 → L-D 01-19 02:20 → PP1 01-19 21:12
PROVIDERS: ADMIT Obstetrics & Gynecology; ATTEND Obstetrics & Gynecology
PROC: 10D00Z1 Extraction of Products of Conception, Low, Open Approach (ICD-10-PCS; principal; 2017-01-19 17:30)
DX: O34.211 Maternal care for low transverse scar from previous cesarean delivery (principal); O60.14X0 Preterm labor third trimester with preterm delivery third trimester, not applicable or unspecified; O24.429 Gestational diabetes mellitus in childbirth, unspecified control; Z3A.34 34 weeks gestation of pregnancy; Z37.0 Single live birth
CPT/HCPCS: 36415; 76816; 76818; 80307; 81001; 81003; 82962; 84112; 85025; 85610; 85730; 86592; 86850; 86900; 86901; 86920; 87340; 90715; 96360; 96361; 96374; 99464; G0463; J0690; J0702; J1170; J1200; J1815; J1885; J2175; J2270; J2274; J2370; J2405; J2590; J2765; J3105; J3475; J7120

== ENCOUNTER 2019-01-02 11:40 | Emergency (ER) | payer SELFPAY ==
[~2019-01-02] VITALS: Ht 157.5 cm; Wt 70.8 kg
[~2019-01-02 11:40] MED LIST changes: +CALC600T5 PO; +FERR325C PO; +FOLI0.8C PO; +IBUP-1544 PO; -ONDA-43 PO; +Oxycodone/Acetamin (5/325) PO; +PREN1TAB79 PO; +SENN-120 PO; -SENN-53 PO
[2019-01-02 12:01] VITALS: BP 117/62; PULSE 92; RESP 18; Ht 157.5 cm; Wt 70.8 kg
== END 2019-01-02 14:51 | disposition left against medical advice (07) ==
LOC: FTE 11:40
DX: Z53.21 Procedure and treatment not carried out due to patient leaving prior to being seen by health care provider (principal)

== ENCOUNTER 2019-05-05 01:50 | Outpatient (CLI) | payer SELFPAY ==
[~2019-05-05] VITALS: Ht 157.5 cm; Wt 74.7 kg
[2019-05-05 02:23] VITALS: BP 122/70; PULSE 105; RESP 16
--- NOTE | 2019-05-05 03:45 | PN ---
Triage Information Date/Time 05/05/19 Reason for visit: Abd/pelvic pain Weeks of Gestation 25w3d /Para x4 c/s x2 term x2 out of x2 term c/s 2nd preg after bitten up by FOB ccause not known had A2DM and PIH with 3rd and 4th , had Additional information all three children in foster care Objective Vital Signs Date Temp Pulse Resp B/P (MAP) Pulse Ox O2 O2 Flow FiO2 Time Delivery Rate 05/05/19 98.2 105 16 122/70 Room Air 02:23 (87) Heart Rate: 150's (160) Heart Rate Comments adequate for GA Contractions: None Results/Medications Medications po hydration Imaging Results CVL 4.8 MVP 7.1 EFW 681gm Disposition: Discharge Assessment/Plan A IUP 25w3d pelvic pain resolved P discharge home ,has appointment with licensed master social worker in [facility] at [address] MD May 05, 2019 03:45
--- NOTE | 2019-05-05 04:20 | TRIAGE ---
OB Triage Datetime Report Generated by CPN: 05/05/2019 04:20 Datetime: 05/05/2019 02:30 Time of Arrival: 05/05/2019 01:50 EGA: 23.3 Arrived By: Wheelchair Arrived From: Home Chief Complaint: L3 w/ hx c/s x4 c/o ucs earlier Pt states hx PIH and A2DM with her other pregnancies Movement: Present Contractions: Occasional Rupture of Membranes: Denies Vaginal Bleeding: None Vaginal Discharge: Denies Recent Sexual Intercouse: Denies Abdominal Trauma: Not Applicable Patient Complaints: Cramping Additional Patient Complaints: Pt states she feels her problem is mostly emotional and feels very s entimental since her other children were taken away by SS d/t her not being able to provide for them and having physical problems Time Provider Notified: 05/05/2019 02:45 Provider Notified: Dr Tavera Initial Plan: RODDY, DEONTE BARR, UA, UCED, CVL, EFW, TAVO
== END 2019-05-05 03:50 | disposition home or self-care (01) ==
LOC: L-D 01:50 → OBT 01:50
PROVIDERS: ATTEND Obstetrics & Gynecology
DX: O60.02 Preterm labor without delivery, second trimester (principal); Z3A.25 25 weeks gestation of pregnancy
CPT/HCPCS: 76815; 76817; G0463